=== PATIENT | male | born 1995 | race Asian ===

== ENCOUNTER 2022-02-24 13:21 | Emergency (ER) | payer BC ==
[2022-02-24 14:30] LABS: #Monocytes 0.3 10x3/uL (0.0-1.1); #Neutrophils 3.2 10x3/uL (1.5-8.4); %Basophils 0.5 % (0.0-2.0); %Eosinophils 0.9 % (0.0-6.0); %Lymphocytes 18.4 % (18.0-47.0); %Monocytes 6.4 % (0.0-10.0); %Neutrophils 73.6 % (40.0-75.0); Hemoglobin 4.2 g/dL (13.5-17.5); Mean Corpuscular HGB CONC 26.3 g/dL (32.0-36.0); Mean Corpuscular Hemoglobin 15.4 pg (27.0-33.0); Mean Corpuscular Volume 58.6 fl (81.2-95.1); Platelet Count 263 10x3/uL (150-450); Red Blood Cell (RBC) Count 2.73 10x6/uL (4.32-5.72); White Blood Cell (WBC) Count 4.4 10x3/uL (3.5-10.5)
[2022-02-24 14:40] LABS: ALT (SGPT) 8 U/L (8-55); AST (SGOT) 12 U/L (5-34); Albumin 4.6 g/dL (3.5-5.0); Alkaline Phosphatase 34 U/L (40-110); Anion Gap 16 mmol/L (10-20); BUN (Urea Nitrogen) 15 mg/dL (8.9-20.6); Bilirubin, Total 0.5 mg/dL (0.2-1.2); Calc. Creatinine Clearance 0 mL/min (70-130); Calcium 8.8 mg/dL (7.8-10.44); Carbon Dioxide 21 mmol/L (22-29); Chloride 108 mmol/L (98-107); Globulin 1.9 g/dL (2.4-3.5); Glucose 96 mg/dL (70-105); Potassium 3.8 mmol/L (3.5-5.1); Protein, Total 6.5 g/dL (6.0-8.3); Sodium 141 mmol/L (136-145)
[2022-02-24 15:47] LABS: Reflex for Review?? YES
[2022-02-24 15:48] LABS: Anisocytosis MARKED = >30 cells (100X) (0-5/hpf); Hypochromia MARKED = >30 cells (100X) (0-5/hpf); Macrocytosis SLIGHT = 6-15 cells (100X) (0-5/hpf); Microcytosis MARKED = >30 cells (100X) (0-5/hpf); Poikilocytosis MODERATE=16-30 cells (100X) (0-5/hpf)
[2022-02-24 15:59] LABS: Elliptocytes SLIGHT = 2-5 cells (100X) (0-1/hpf); Ovalocytes SLIGHT = 2-5 cells (100X) (0-1/hpf)
[2022-02-24 16:17] LABS: Tear Drops SLIGHT = 2-5 cells (100X) (0-1/hpf)
== END 2022-02-24 20:14 | disposition home or self-care (01) ==
LOC: CSHERS 13:21
DX: D64.9 Anemia, unspecified (principal)
CPT/HCPCS: 36415; 36430; 80053; 82274; 85025; 85060; 86850; 86900; 86901; 99284; P9016

== ENCOUNTER 2022-03-31 10:19 | Outpatient (CLI) | payer BC | END 2022-03-31 10:20 | disposition home or self-care (01) | LOC: CSHLAB 10:19 | PROVIDERS: ATTEND Internal Medicine Gastroenterology | DX: Z20.822 Contact with and (suspected) exposure to COVID-19 (principal) | CPT/HCPCS: 87811 ==

== ENCOUNTER 2022-04-03 06:33 | Day surgery (SDC) | payer BC ==
[2022-04-01 14:57] VITALS: BMI 22.3
[2022-04-03] MEDS ORDERED: Lidocaine 1% MPF 2 ML VIAL ONE (07:10)
[2022-04-03] MEDS ORDERED: PROPOFOL 40 ML ONE (08:25)
== END 2022-04-03 09:22 | disposition home or self-care (01) ==
LOC: CSHSDC 06:33
PROVIDERS: ATTEND Internal Medicine Gastroenterology
PROC: 0DJD8ZZ Inspection of Lower Intestinal Tract, Via Natural or Artificial Opening Endoscopic (ICD-10-PCS; principal; 2022-04-03)
DX: K62.5 Hemorrhage of anus and rectum (principal); K64.8 Other hemorrhoids; K64.4 Residual hemorrhoidal skin tags; D50.0 Iron deficiency anemia secondary to blood loss (chronic); I10 Essential (primary) hypertension
CPT/HCPCS: J2704